=== PATIENT | male | born 1950 | race Caucasian/White ===

== ENCOUNTER 2020-06-12 18:31 | Emergency (ER) | payer MEDICARE, SELFPAY ==
--- NOTE | ~2020-06-12 | XR_ITS ---
EXAMINATION: XR elbow RT min 3V DATE: 06/12/2020 19:39 INDICATION: Right elbow pain TECHNIQUE: Anteroposterior, two oblique and lateral views of the right elbow were obtained. COMPARISON: None. FINDINGS: Alignment is normal. No fracture or joint effusion. 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 There is posterior soft tissue swelling of the elbow. IMPRESSION: 1. Soft tissue swelling without acute osseous abnormality. Reviewed, dictated and finalized at location A. [facility]
[2020-06-12 19:16] VITALS: BP 136/69; PULSE 89; RESP 16; TEMP 36.4; O2SAT 99
--- NOTE | 2020-06-12 19:49 | ED.UPPEXIN ---
HPI - Extremity Injury (Upper) General Chief Complaint: Extremity Injury, Upper Stated Complaint: Fall Time Seen by Provider: 06/12/20 19:50 Source: patient and RN notes reviewed Mode of arrival: ambulatory Limitations: no limitations History of Present Illness HPI narrative: 70-year-old male presents with concern for right elbow injury. Reports 3 days ago he tripped on a carpet and hit his elbow on a piano. Reports lateral elbow pain, swelling, redness. Reports the redness and swelling have slightly improved over the last several days. Reports he has been taking Tylenol, elevation, and using ice, denies any other intervention. He denies any distal numbness, decreased strength, pain. MD complaint: injury to: right and elbow Related Data Home Medications Medication Instructions Recorded Confirmed atorvastatin 80 mg PO DAILY 06/12/20 06/12/20 lisinopril 20 mg PO DAILY 06/12/20 06/12/20 Allergies Allergy/AdvReac Type Severity Reaction Status Date / Time No Known Allergies Allergy Verified 06/12/20 19:25 Review of Systems Review of Systems: Narrative: CONSTITUTIONAL: Denies malaise, chills, sweats, or fever. CARDIOVASCULAR: Denies chest pain, palpitations RESPIRATORY: Denies cough or dyspnea. SKIN: Denies abrasion, laceration, bruising MUSCULOSKELETAL: Reports right elbow pain, redness, swelling NEUROLOGIC: Denies numbness, weakness All systems reviewed & are unremarkable except as noted in HPI and below PMFSH Comments At time of signature, agree with nursing past medical, surgical, social and family history. There is no relevant family history pertinent to the presenting complaint Exam Narrative: Exam Narrative: GENERAL: Well-appearing, well-nourished, and in no acute distress. HEAD: Normocephalic, atraumatic. EYES: PERRLA, conjunctivae clear NECK: Supple. CHEST: Speaks in full sentences. No respiratory distress. HEART: Regular rate and rhythm. Normal and equal peripheral pulses. EXTREMITIES: Right elbow, arm, hand, digits have normal strength and sensation, normal range of motion. Moderate lateral elbow edema and erythema, no ecchymosis. 5/5 strength with elbow and wrist flexion and extension. Normal sensation with sensitivity to light touch and pain. Lateral elbow tenderness. No open wounds, no skin tenting, no devitalized tissue or atrophy, no trophic changes, no obvious deformity, alignment normal, nearby joints and structures intact. Distal pulses palpable and equal bilaterally, skin warm, dry, pink. Capillary refill less than 3 seconds. SKIN: Warm, dry, no rash. NEURO: Alert and oriented x3. PSYCH: Normal mood and affect Course Course Emergency Course: Patient is aware of diagnosis, understands and agrees to treatment plan. Anticipatory guidance given. Patient agrees to follow-up as directed and is aware of reasons to seek care at the emergency department. Portions of this record may have been created with voice recognition software Vital Signs Vital signs: Vital Signs Temperature 97.6 F 06/12/20 19:16 Pulse Rate 89 06/12/20 19:16 Respiratory Rate 16 06/12/20 19:16 Blood Pressure 136/69 06/12/20 19:16 Pulse Oximetry 99 06/12/20 19:16 Temperature 97.6 F 06/12/20 19:16 Pulse Rate 89 06/12/20 19:16 Respiratory Rate 16 06/12/20 19:16 Blood Pressure 136/69 06/12/20 19:16 Pulse Oximetry 99 06/12/20 19:16 Reviewed. MDM - Extremity Injury (Upper) MDM Narrative Medical decision making narrative: Patients injury and pain is consistent with musculoskeletal etiology. No signs of neurological or vascular compromise on exam. Compartments and tissues are soft without signs of compartment syndrome. Pain is felt appropriate for further evaluation on an outpatient basis. Imaging Data My impression: Images reviewed, interpreted by radiologist, agree, see report. Radiologist's impression: EXAMINATION: XR elbow RT min 3V DATE: 06/12/2020 19:39 INDICATION: Right elbow pain T
== END 2020-06-12 20:01 | disposition home or self-care (01) ==
PROVIDERS: Emergency Provider Nurse Practitioner; PCP Family Medicine
DX: S59.901A Unspecified injury of right elbow, initial encounter (principal); W18.49XA Other slipping, tripping and stumbling without falling, initial encounter; E78.00 Pure hypercholesterolemia, unspecified; I10 Essential (primary) hypertension; K21.9 Gastro-esophageal reflux disease without esophagitis; Z96.643 Presence of artificial hip joint, bilateral
CPT/HCPCS: 73080; 99213; G0463

== ENCOUNTER 2021-11-21 14:54 | Outpatient (RCR) | payer MEDICARE, SELFPAY ==
[2021-11-21] MEDS: ACETAMINOPHEN 325 MG TABLET 650 MG PO (15:30)
[2021-11-21] MEDS: FAMOTIDINE 20 MG TABLET PO (15:30)
[2021-11-21] MEDS: diphenhydrAMINE HCl CAP 25 MG CAPSULE PO (15:30)
[2021-11-21 15:44] VITALS: BP 127/68; PULSE 62; RESP 18; TEMP 36.1; O2SAT 99
[2021-11-21] MEDS: BEBTELOVIMAB 175 MG/2 ML VIAL IV PUSH (15:46)
[2021-11-21 16:20] VITALS: BP 125/57; PULSE 60; RESP 20; O2SAT 99
== END 2021-11-21 16:00 ==
LOC: AMCINF 14:54
PROVIDERS: Referring Provider Family Medicine; Visit Provider Internal Medicine Hematology & Oncology
DX: U07.1 COVID-19 (principal); I10 Essential (primary) hypertension; I25.10 Atherosclerotic heart disease of native coronary artery without angina pectoris
CPT/HCPCS: A9270; M0222; Q0222